=== PATIENT | male | born 1985 | race Caucasian/White ===

== ENCOUNTER 2019-03-29 10:56 | Emergency (ER) | payer OTHER, SELFPAY ==
[2019-03-29] VITALS (38 sets, daily range): BP systolic 118–147; BP diastolic 80–110; PULSE 61–82; RESP 14–23; TEMP 37–37.2; O2SAT 95–99
--- NOTE | 2019-03-29 11:13 | DI.RAD_ITS ---
SYMPTOMS/DIAGNOSIS: GASOLINE INHALATION, SHORTNESS OF BREATH PA AND LATERAL CHEST: The heart is normal in size. The lungs are clear. The mediastinal structures and pleura appear intact. CONCLUSION: Normal chest.
[2019-03-29 11:31] LABS: Bilirubin Negative (Negative); Blood Negative (Negative); Clarity Clear (Clear); Glucose Negative (Negative); Ketones Negative (Negative); Leukocyte Esterase Negative (Negative); Nitrite Negative (Negative); Urobilinogen 0.2 EU/dL (Up TO 0.2)
[2019-03-29] MEDS: Normal Saline 1,000 ML 1000 ML IV (11:33)
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
[2019-03-29 11:50] LABS: Abs Immature Grans 0.01 k/cumm (0.0-0.09); Absolute Basophil Count 0.03 k/cumm (0.0-0.2); Absolute Eosinophil Count 0.06 k/cumm (0.0-0.7); Absolute Lymphocyte Count 1.84 k/cumm (1.2-3.4); Absolute Monocyte Count 0.41 k/cumm (0.11-0.7); Absolute Neutrophil Count 3.91 k/cumm (1.2-6.7); Basophils % 0.5; HCT 43.5 % (40.0-50.0); HGB 14.8 g/dL (13.5-17.5); Immature Grans % 0.2; Lymphocytes % 29.4; Mean Corpuscular Hemoglobin 28.5 pg (27.0-33.0); Mean Corpuscular Volume 83.8 fL (80-95); Monocytes % 6.5; Neutrophils % 62.4; Platelet Count 299 x1000/uL (130-400); RBC 5.19 m/cumm (4.50-6.00); RBC Distribution Width 12.9 % (11.8-14.1); White Blood Cell Count 6.26 k/cumm (4.4-10.8)
[2019-03-29 11:55] LABS: ALT 35 U/L (16-63); AST 20 U/L (15-37); Albumin 4.2 g/dL (3.4-5.0); Alkaline Phosphatase 76 U/L (46-116); Anion Gap 8.3 mmol/L (3-11); BUN 10 mg/dL (7-18); Bilirubin, Total 0.3 mg/dL (0.2-1.0); CO2 28.7 mmol/L (21.0-32.0); CREATININE 1.21 mg/dL (0.70-1.30); Calcium 8.7 mg/dL (8.5-10.1); Chloride 102 mmol/L (98-107); Glucose 87 mg/dL (70-100); Potassium 3.8 mmol/L (3.5-5.1); Sodium 139 mmol/L (136-145); Total Protein 8.1 g/dL (6.4-8.2)
== END 2019-03-29 14:54 | disposition home or self-care (01) ==
PROVIDERS: Emergency Provider Student in an Organized Health Care Education/Training Program; PCP Family Medicine
DX: T52.0X1A Toxic effect of petroleum products, accidental (unintentional), initial encounter (principal); R05 Cough; R11.10 Vomiting, unspecified; R51 Headache; R06.02 Shortness of breath
CPT/HCPCS: 36415; 80053; 93005; 96360; 99285; 71046; 81003; 85025; 93010